=== PATIENT | female | born 1960 | race Caucasian/White ===

== ENCOUNTER 2023-06-01 07:53 | Outpatient (CLI) | payer OTHER, SELFPAY ==
--- NOTE | 2023-06-01 08:15 | CRLHL7_ITS ---
For Patients: As a result of the Century Cures Act, medical imaging exams and procedure reports are released immediately into your electronic medical record. You may view this report before your referring provider. If you have questions, please contact your health care provider. BILATERAL SCREENING MAMMOGRAM WITH COMPUTER-AIDED DETECTION AND TOMOSYNTHESIS TECHNIQUE: CC and MLO views were obtained. These mammographic images have been obtained using full-field digital technique. These mammographic images were interpreted with the benefit of computer-aided detection. Breast tomosynthesis was used in this interpretation. COMPARISON FILM: 01/28/21, 01/13/21. FINDINGS: The breasts are heterogeneously dense, which may obscure small masses. IMPRESSION: There is no radiographic evidence for malignancy. ASSESSMENT: BI-RADS Category 1: Negative RECOMMENDATION: Routine screening mammogram in 1 year. A lay language report of this examination will be provided to the patient. ANDREW HURLEY M.D. Diagnostic Radiologist [email or web address] Transcribed: 06/01/2023, 2:[address]/Dictated by: Andrew Hurley MD @ 06/01/2023 9:01:00 AM (Electronically Signed)
== END 2023-06-01 07:54 | disposition home or self-care (01) ==
LOC: MAMMO 07:59
PROVIDERS: PCP Family Medicine; Visit Provider Family Medicine
DX: Z12.31 Encounter for screening mammogram for malignant neoplasm of breast (principal); R92.2 Inconclusive mammogram
CPT/HCPCS: 77063; 77067

== ENCOUNTER 2023-08-22 11:49 | Emergency (ER) | payer OTHER, SELFPAY ==
[2023-08-22 12:16] VITALS: BP 182/97; PULSE 66; RESP 18; TEMP 36.1; O2SAT 98; BMI 27.4
== END 2023-08-22 12:53 | disposition left against medical advice (07) ==
PROVIDERS: Emergency Provider Family Medicine; PCP Family Medicine
DX: Z53.21 Procedure and treatment not carried out due to patient leaving prior to being seen by health care provider (principal)